=== PATIENT | male | born 1965 | race African-American/Black ===

== ENCOUNTER 2017-02-15 19:20 | Emergency (ER) | payer OTHER ==
[2017-02-15] MEDS ORDERED: Naproxen 500 MG TAB ONE (20:30)
[2017-02-15] MEDS ORDERED: Diazepam 5 MG TAB ONE (20:30)
[2017-02-15] MEDS ORDERED: HYDROcodone/Acetaminophen 10/325 mg Tablet ONE (20:30)
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
[2017-02-15] MEDS ORDERED: AMOXicillin 250 MG CAP ONE (21:14)
== END 2017-02-15 21:19 | disposition home or self-care (01) ==
LOC: MADERS 19:20
DX: S30.0XXA Contusion of lower back and pelvis, initial encounter (principal); K04.7 Periapical abscess without sinus; M62.838 Other muscle spasm; V43.52XA Car driver injured in collision with other type car in traffic accident, initial encounter
CPT/HCPCS: 72125; 72128

== ENCOUNTER 2018-12-29 20:52 | Emergency (ER) | payer OTHER, SELFPAY ==
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
== END 2018-12-29 21:40 | disposition home or self-care (01) ==
LOC: MADERS 20:52
DX: S43.402A Unspecified sprain of left shoulder joint, initial encounter (principal); V89.2XXA Person injured in unspecified motor-vehicle accident, traffic, initial encounter

== ENCOUNTER 2025-01-08 07:39 | Emergency (ER) | payer BC, OTHER ==
[2025-01-08] MEDS ORDERED: Acetaminophen 500 MG TAB ONE (08:20)
[2025-01-08] MEDS ORDERED: Naproxen 500 MG TAB ONE (08:20)
== END 2025-01-08 09:02 | disposition home or self-care (01) ==
LOC: MADERS 07:39
DX: M16.12 Unilateral primary osteoarthritis, left hip (principal); M54.50 Low back pain, unspecified; G89.29 Other chronic pain; R03.0 Elevated blood-pressure reading, without diagnosis of hypertension
CPT/HCPCS: 99283

== ENCOUNTER 2025-05-27 00:48 | Emergency (ER) | payer BC ==
[2025-05-27] MEDS ORDERED: Ketorolac Tromethamine 30 MG (1 mL) VIAL ONE (01:20)
[2025-05-27] MEDS ORDERED: Acetaminophen 500 MG TAB ONE (01:20)
== END 2025-05-27 01:41 | disposition home or self-care (01) ==
LOC: MADERS 00:48
DX: M16.12 Unilateral primary osteoarthritis, left hip (principal); I10 Essential (primary) hypertension; M54.50 Low back pain, unspecified
CPT/HCPCS: 96372; 99283; J1885